=== PATIENT | male | born 1965 | race Two or more races ===

== ENCOUNTER 2018-12-05 13:01 | Inpatient (IN) | payer OTHER ==
[~2018-12-05] VITALS: Ht 167.6 cm; Wt 55.8 kg
[2018-12-05 14:26] LABS: BASOPHIL % 0.5 % (0-2); PLATELET COUNT 392 x10^3mcL (130-400); RED CELL DISTRIBUTION WIDTH 13.6 % (11.5-14.5)
[2018-12-05 14:37] LABS: CALCIUM 9.8 mg/dL (8.5-10.1); CARBON DIOXIDE 29.9 mmol/L (21-32); CHLORIDE SERUM 103 mmol/L (98-107); CREATININE SERUM 0.9 mg/dL (0.7-1.3); GFR1 > 60 mL/min; GLUCOSE SERUM 122 mg/dL (74-106); POTASSIUM SERUM 4.2 mmol/L (3.5-5.1); SODIUM SERUM 142 mmol/L (136-145)
[2018-12-05 14:49] LABS: ALBUMIN 4.2 g/dL (3.4-5.0); ALKALINE PHOSPHATASE 110 U/L (46-116); ALT/SGPT 11 U/L (16-63); AST/SGOT 17 U/L (15-37); BILIRUBIN TOTAL 0.51 mg/dL (0.20-1.00); T4(THYROXINE) 8.2 ug/dL (4.7-13.3); TOTAL PROTEIN, SERUM 7.8 g/dL (6.4-8.2)
[2018-12-05 16:40] LABS: microscopic required? NO
[2018-12-05 16:58] LABS: urine erythrocyte NEGATIVE (NEGATIVE)
[2018-12-05 17:06] LABS: AMPHETAMINE QUAL UR NONE DETECTED (See below)
[2018-12-06] MEDS ORDERED: SIN25100 PO (19:00)
[2018-12-06 20:13] VITALS: BP 134/92
[2018-12-07 05:22] VITALS: BP 138/94
[2018-12-07 06:11] LABS: BASOPHIL % 0.5 % (0-2); PLATELET COUNT 354 x10^3mcL (130-400); RED CELL DISTRIBUTION WIDTH 13.5 % (11.5-14.5)
[2018-12-07 06:26] LABS: CALCIUM 9.4 mg/dL (8.5-10.1); CARBON DIOXIDE 27.1 mmol/L (21-32); CHLORIDE SERUM 103 mmol/L (98-107); GFR1 > 60 mL/min; GLUCOSE SERUM 102 mg/dL (74-106); POTASSIUM SERUM 3.8 mmol/L (3.5-5.1); SODIUM SERUM 141 mmol/L (136-145)
[2018-12-07 12:00] VITALS: BP 136/78
[2018-12-07 19:07] VITALS: BP 149/99
[2018-12-07 19:52] VITALS: BP 153/89
[2018-12-08 06:05] VITALS: BP 136/81
[2018-12-08 08:24] VITALS: BP 129/87
[2018-12-08] MEDS ORDERED: SIN25100 PO (10:52)
[2018-12-08 13:01] VITALS: BP 129/87
[2018-12-08 16:38] VITALS: BP 136/86
== END 2018-12-08 20:49 | disposition home or self-care (01) | DRG 42 ==
LOC: ED 13:01 → MU 12-06 17:12
PROVIDERS: Emergency Medicine; ADMIT Internal Medicine Pulmonary Disease
DX: G20 Parkinson's disease (principal); F02.81 Dementia in other diseases classified elsewhere, unspecified severity, with behavioral disturbance; F20.1 Disorganized schizophrenia
CPT/HCPCS: G0378; G0480; J2060